=== PATIENT | male | born 1940 | race Caucasian/White ===

== ENCOUNTER → 2016-05-31 | Outpatient (CLI) | payer MEDICARE ==
[2016-01-18 09:57] VITALS: BP 118/67
[~2016-05-31] MED LIST: ALLO300T PO; ASPI325T4 PO; ATOR20TA58 PO; BYSTOLIC5 MG PO; CHOL500015 PO; DULO30CA2 PO; FENO160T PO; GABA-585 PO; IRBE300T3 PO; METF10002 PO; OMEG1CAP16 PO; PIOG30TA3 PO; UBID10CA5 PO
--- NOTE | 2016-05-31 15:04 | KCIC ---
PROCEDURE [facility]. HISTORY COPD. Acute bronchitis. Cough. Shortness of air. Chills. Fever. Body aches. Symptoms have been present for 3 days. COMPARISON None available. FINDINGS No acute lung infiltrate or pleural effusion or pulmonary edema or lung mass or pneumothorax is seen. A sternotomy is evident. The heart size is mildly enlarged. The pulmonary vasculature, mediastinum and both jenny are unremarkable. The osseous structures appear intact. IMPRESSION No acute lung infiltrate. Mild cardiomegaly. Electronically signed by: Alex Bassett MD (May 31, 2016 15:02:33)
== END | disposition home or self-care (01) ==
LOC: KCIC 11:53
PROVIDERS: ATTEND Family Medicine
DX: I51.7 Cardiomegaly (principal); J44.9 Chronic obstructive pulmonary disease, unspecified; R06.02 Shortness of breath; R50.9 Fever, unspecified
CPT/HCPCS: 71020

== ENCOUNTER → 2016-06-01 | Outpatient (CLI) | payer MEDICARE ==
[2016-01-18 09:57] VITALS: BP 118/67
== END | disposition home or self-care (01) ==
LOC: PCVCCLINIC 15:29
PROVIDERS: ATTEND Internal Medicine Cardiovascular Disease
DX: I25.10 Atherosclerotic heart disease of native coronary artery without angina pectoris (principal); R06.00 Dyspnea, unspecified; E78.1 Pure hyperglyceridemia; I10 Essential (primary) hypertension; E78.00 Pure hypercholesterolemia, unspecified; G47.33 Obstructive sleep apnea (adult) (pediatric); I77.9 Disorder of arteries and arterioles, unspecified; J44.9 Chronic obstructive pulmonary disease, unspecified
CPT/HCPCS: 93005; G0463

== ENCOUNTER → 2016-07-19 | Outpatient (CLI) | payer MEDICARE ==
[2016-01-18 09:57] VITALS: BP 118/67
--- NOTE | 2016-07-19 16:21 | KCIC ---
PROCEDURE Three views right hand dated 07/19/2016. HISTORY Chronic right hand pain worsening lately. No known injury. TECHNIQUE Three views obtained. COMPARISON None. FINDINGS Bony alignment is anatomic. No displaced fracture no acute osseous or articular abnormality. Moderate degenerative change of 1st carpal metacarpal joint with mild degenerative change of the scaphoid trapezial joint and interphalangeal joints throughout. There is also mild arthrosis of the MCP joints throughout. No erosive changes or periostitis. IMPRESSION No acute radiographic abnormality. Mild to moderate degenerative changes as described above. Electronically signed by: Alvarado Pike (Jul 19, 2016 16:19:39)
== END | disposition home or self-care (01) ==
LOC: KCIC 15:25
PROVIDERS: ATTEND Family Medicine
DX: M79.641 Pain in right hand (principal); M19.041 Primary osteoarthritis, right hand; G89.29 Other chronic pain
CPT/HCPCS: 73130

== ENCOUNTER → 2016-09-20 | Outpatient (CLI) | payer MEDICARE ==
[2016-01-18 09:57] VITALS: BP 118/67
[~2016-09-20] MED LIST changes: -ASPI325T4 PO; +ASPI325T8 PO; -CHOL500015 PO; +CHOL500045 PO; +METF-620 PO; -METF10002 PO; -OMEG1CAP16 PO; +OMEG1CAP27 PO
== END | disposition home or self-care (01) ==
LOC: PMGWOUND 10:32
PROVIDERS: ATTEND Emergency Medicine Undersea and Hyperbaric Medicine
DX: E11.622 Type 2 diabetes mellitus with other skin ulcer (principal); L97.811 Non-pressure chronic ulcer of other part of right lower leg limited to breakdown of skin; I10 Essential (primary) hypertension; E78.00 Pure hypercholesterolemia, unspecified; I25.10 Atherosclerotic heart disease of native coronary artery without angina pectoris; E11.40 Type 2 diabetes mellitus with diabetic neuropathy, unspecified; J44.9 Chronic obstructive pulmonary disease, unspecified; E78.5 Hyperlipidemia, unspecified; Z87.891 Personal history of nicotine dependence; Z95.1 Presence of aortocoronary bypass graft
CPT/HCPCS: 29581; 97597

== ENCOUNTER → 2016-09-23 | Outpatient (CLI) | payer MEDICARE ==
[2016-01-18 09:57] VITALS: BP 118/67
== END | disposition home or self-care (01) ==
LOC: PMGWOUND 10:34
PROVIDERS: ATTEND Preventive Medicine Undersea and Hyperbaric Medicine
DX: E11.622 Type 2 diabetes mellitus with other skin ulcer (principal); L97.811 Non-pressure chronic ulcer of other part of right lower leg limited to breakdown of skin; J44.9 Chronic obstructive pulmonary disease, unspecified; I10 Essential (primary) hypertension; E78.5 Hyperlipidemia, unspecified; E78.00 Pure hypercholesterolemia, unspecified; E11.40 Type 2 diabetes mellitus with diabetic neuropathy, unspecified; I25.2 Old myocardial infarction; I25.10 Atherosclerotic heart disease of native coronary artery without angina pectoris; Z95.1 Presence of aortocoronary bypass graft; Z87.891 Personal history of nicotine dependence
CPT/HCPCS: 29581

== ENCOUNTER → 2016-09-30 | Outpatient (CLI) | payer MEDICARE ==
[2016-01-18 09:57] VITALS: BP 118/67
== END | disposition home or self-care (01) ==
LOC: PMGWOUND 10:21
PROVIDERS: ATTEND Preventive Medicine Undersea and Hyperbaric Medicine
DX: E11.622 Type 2 diabetes mellitus with other skin ulcer (principal); I87.311 Chronic venous hypertension (idiopathic) with ulcer of right lower extremity; L97.211 Non-pressure chronic ulcer of right calf limited to breakdown of skin; J44.9 Chronic obstructive pulmonary disease, unspecified; I10 Essential (primary) hypertension; E78.5 Hyperlipidemia, unspecified; I25.2 Old myocardial infarction; E78.00 Pure hypercholesterolemia, unspecified; E11.40 Type 2 diabetes mellitus with diabetic neuropathy, unspecified; Z87.891 Personal history of nicotine dependence; Z95.1 Presence of aortocoronary bypass graft
CPT/HCPCS: 99213

== ENCOUNTER → 2016-10-18 | Outpatient (CLI) | payer MEDICARE ==
[2016-01-18 09:57] VITALS: BP 118/67
--- NOTE | 2016-10-18 14:48 | PCVCIMAG ---
APPROVED REPORT Patient Location: Out-Patient Indications Stenosis Doppler Spectral Velocity Analysis PSV / EDVPSV / EDV ECA (R) 137 / 12 cm/sECA (L) 110 / 7 cm/s dICA (R) 71 / 18 cm/sdICA (L) 79 / 18 cm/s Bertram (R) 71 / 18 cm/smICA (L) 83 / 16 cm/s pICA (R) 63 / 13 cm/spICA (L) 95 / 22 cm/s Bulb (R) 74 / 13 cm/sBulb (L) 95 / 12 cm/s dCCA (R) 86 / 14 cm/sdCCA (L) 116 / 14 cm/s mCCA (R) 102 / 13 cm/smCCA (L) 101 / 15 cm/s Vert (R) 50 / 12 cm/sVert (L) 63 / 16 cm/s ICA/CCA 0.83 ICA/CCA 0.82 Findings The right carotid bulb has moderate plaque. The right proximal internal carotid artery shows <40% stenosis. The right common carotid artery shows no significant stenosis. The right external carotid artery shows no significant stenosis. The left carotid bulb has mild plaque. The left proximal internal carotid artery shows <40% stenosis. The left common carotid artery shows no significant stenosis. The left external carotid artery shows no significant stenosis. Conclusion 1. Mild-moderate internal carotid plaquing (<40%) 2. Antegrade vertebral flow
--- NOTE | 2016-10-18 17:36 | PCVCIMAG ---
APPROVED REPORT Exam: Stress Echocardiogram Indication: CAD s/p PCI, Hx CABG, COPD, Obesity, DM Stress Nurse: Sarah Chauhan RN Status: routine HR: 85 bpm Rhythm: NSR Medical History Medical History: CAD s/p stent, Diabetes, Obesity Procedure The patient underwent an Exercise Stress Test using the Erik Protocol. Blood pressure, heart rate, and EKG were monitored. An Echocardiogram was performed by supply chain technician in four stages in quad fashion. At peak stress, four selected images were obtained and placed side by side with resting images for comparison. Stress Test Details Stress Test: Exercise stress testing was performed using a Erik protocol. HR Resting HR: 85 bpmMax Heart Rate (APMHR): 145 bpm Max HR Achieved: 139 bpmTarget HR (85% APMHR): 123 bpm % of APMHR: 95 Recovery HR: 86 bpm HR response to stress: Normal HR response to stress BP Resting BP: 120/72 mmHg Max BP: 138/62 mmHg Recovery BP: 138/62 mmHg ECG Resting ECG: Sinus Rhythm w/ T wave inversion Stress ECG: Sinus Rhythm w/ T wave inversion Arrhythmia: None Recovery ECG: Sinus Rhythm Recovery Arrhythmia: None Clinical Reason for Termination: Dyspnea Stress Symptoms: Dyspnea Exercise duration: 3 min 42 sec Highest Stage Achieved: Stage 2: 2.5 mph at 12% grade. Exercise capacity: 6.2 METs Overall Exercise Capacity for Age: Poor Pre-Stress Echo The resting Echocardiogram showed normal left ventricular contractility with an estimated Ejection Fraction of about 50-55%. Normal wall motion in all segments on baseline images. Post-Stress Echo The stress Echocardiogram showed normal left ventricular contractility with an estimated Ejection Fraction of about 60-65%. Normal augmentation of wall motion in all segments on post stress images. Clinical No clinical or ECG evidence for ischemia. Conclusion Clinical Response: Non-ischemic Exercise Capacity: Below Average Stress ECG Response: Non-ischemic Stress Echo Images: Non-ischemic Other Information Study Quality: Fair
== END | disposition home or self-care (01) ==
LOC: PCVCIMAG 13:22
PROVIDERS: ATTEND Internal Medicine Cardiovascular Disease
DX: I65.23 Occlusion and stenosis of bilateral carotid arteries (principal); I10 Essential (primary) hypertension; I25.10 Atherosclerotic heart disease of native coronary artery without angina pectoris; J44.9 Chronic obstructive pulmonary disease, unspecified; E11.9 Type 2 diabetes mellitus without complications; E66.9 Obesity, unspecified; Z95.1 Presence of aortocoronary bypass graft
CPT/HCPCS: 93325; 93351; 93880

== ENCOUNTER → 2017-01-09 | Outpatient (CLI) | payer MEDICARE ==
[2016-01-18 09:57] VITALS: BP 118/67
== END | disposition home or self-care (01) ==
LOC: PMGWOUND 09:22
PROVIDERS: ATTEND Emergency Medicine Undersea and Hyperbaric Medicine
DX: I87.313 Chronic venous hypertension (idiopathic) with ulcer of bilateral lower extremity (principal); E11.622 Type 2 diabetes mellitus with other skin ulcer; L97.211 Non-pressure chronic ulcer of right calf limited to breakdown of skin; L97.221 Non-pressure chronic ulcer of left calf limited to breakdown of skin; E78.00 Pure hypercholesterolemia, unspecified; I25.10 Atherosclerotic heart disease of native coronary artery without angina pectoris; E11.40 Type 2 diabetes mellitus with diabetic neuropathy, unspecified; Z87.01 Personal history of pneumonia (recurrent); Z89.421 Acquired absence of other right toe(s); Z87.891 Personal history of nicotine dependence; Z95.1 Presence of aortocoronary bypass graft
CPT/HCPCS: 29581

== ENCOUNTER → 2017-01-12 | Outpatient (CLI) | payer MEDICARE ==
[2016-01-18 09:57] VITALS: BP 118/67
== END | disposition home or self-care (01) ==
LOC: PMGWOUND 11:32
PROVIDERS: ATTEND Emergency Medicine Undersea and Hyperbaric Medicine
DX: I87.313 Chronic venous hypertension (idiopathic) with ulcer of bilateral lower extremity (principal); E11.622 Type 2 diabetes mellitus with other skin ulcer; L97.211 Non-pressure chronic ulcer of right calf limited to breakdown of skin; L97.221 Non-pressure chronic ulcer of left calf limited to breakdown of skin; E78.00 Pure hypercholesterolemia, unspecified; I25.10 Atherosclerotic heart disease of native coronary artery without angina pectoris; E11.40 Type 2 diabetes mellitus with diabetic neuropathy, unspecified; Z95.1 Presence of aortocoronary bypass graft; Z87.891 Personal history of nicotine dependence
CPT/HCPCS: 29581

== ENCOUNTER → 2017-01-19 | Outpatient (CLI) | payer MEDICARE ==
[2016-01-18 09:57] VITALS: BP 118/67
== END | disposition home or self-care (01) ==
LOC: PMGWOUND 12:29
PROVIDERS: ATTEND Emergency Medicine Undersea and Hyperbaric Medicine
DX: I87.313 Chronic venous hypertension (idiopathic) with ulcer of bilateral lower extremity (principal); E11.622 Type 2 diabetes mellitus with other skin ulcer; L97.211 Non-pressure chronic ulcer of right calf limited to breakdown of skin; L97.221 Non-pressure chronic ulcer of left calf limited to breakdown of skin; E78.00 Pure hypercholesterolemia, unspecified; I25.10 Atherosclerotic heart disease of native coronary artery without angina pectoris; E11.40 Type 2 diabetes mellitus with diabetic neuropathy, unspecified; Z95.1 Presence of aortocoronary bypass graft; Z87.891 Personal history of nicotine dependence
CPT/HCPCS: 99212

== ENCOUNTER → 2017-04-24 | Outpatient (CLI) | payer MEDICARE | END | disposition home or self-care (01) | LOC: PCVCCLINIC 14:41 | DX: I25.810 Atherosclerosis of coronary artery bypass graft(s) without angina pectoris (principal); I48.0 Paroxysmal atrial fibrillation; I77.9 Disorder of arteries and arterioles, unspecified; I10 Essential (primary) hypertension; E78.00 Pure hypercholesterolemia, unspecified; G47.33 Obstructive sleep apnea (adult) (pediatric); E11.9 Type 2 diabetes mellitus without complications; J44.9 Chronic obstructive pulmonary disease, unspecified; E66.9 Obesity, unspecified; R94.31 Abnormal electrocardiogram [ECG] [EKG]; Z95.1 Presence of aortocoronary bypass graft; Z87.891 Personal history of nicotine dependence; Z79.82 Long term (current) use of aspirin; Z79.899 Other long term (current) drug therapy; Z79.84 Long term (current) use of oral hypoglycemic drugs | CPT/HCPCS: 80061; 93005; G0463 ==

== ENCOUNTER → 2017-06-01 | Outpatient (CLI) | payer MEDICARE | END | disposition home or self-care (01) | LOC: PMGWOUND 13:12 | DX: I87.311 Chronic venous hypertension (idiopathic) with ulcer of right lower extremity (principal); E11.622 Type 2 diabetes mellitus with other skin ulcer; L97.211 Non-pressure chronic ulcer of right calf limited to breakdown of skin; E78.00 Pure hypercholesterolemia, unspecified; I25.10 Atherosclerotic heart disease of native coronary artery without angina pectoris; E11.40 Type 2 diabetes mellitus with diabetic neuropathy, unspecified; J44.9 Chronic obstructive pulmonary disease, unspecified; I48.0 Paroxysmal atrial fibrillation; E66.9 Obesity, unspecified; G47.33 Obstructive sleep apnea (adult) (pediatric); Z87.891 Personal history of nicotine dependence; Z96.659 Presence of unspecified artificial knee joint; Z68.41 Body mass index [BMI] 40.0-44.9, adult; Z95.1 Presence of aortocoronary bypass graft | CPT/HCPCS: 29581 ==

== ENCOUNTER → 2017-06-05 | Outpatient (CLI) | payer MEDICARE | END | disposition home or self-care (01) | LOC: PMGWOUND 13:40 | DX: I87.311 Chronic venous hypertension (idiopathic) with ulcer of right lower extremity (principal); E11.622 Type 2 diabetes mellitus with other skin ulcer; L97.211 Non-pressure chronic ulcer of right calf limited to breakdown of skin; E78.00 Pure hypercholesterolemia, unspecified; I25.10 Atherosclerotic heart disease of native coronary artery without angina pectoris; E11.40 Type 2 diabetes mellitus with diabetic neuropathy, unspecified; J44.9 Chronic obstructive pulmonary disease, unspecified; I48.0 Paroxysmal atrial fibrillation; E66.9 Obesity, unspecified; G47.33 Obstructive sleep apnea (adult) (pediatric); Z87.891 Personal history of nicotine dependence; Z96.659 Presence of unspecified artificial knee joint; Z68.41 Body mass index [BMI] 40.0-44.9, adult; Z95.1 Presence of aortocoronary bypass graft; Z79.82 Long term (current) use of aspirin | CPT/HCPCS: 29581 ==

== ENCOUNTER → 2017-06-13 | Outpatient (CLI) | payer MEDICARE | END | disposition home or self-care (01) | LOC: PMGWOUND 13:39 | DX: I87.311 Chronic venous hypertension (idiopathic) with ulcer of right lower extremity (principal); E11.622 Type 2 diabetes mellitus with other skin ulcer; L97.211 Non-pressure chronic ulcer of right calf limited to breakdown of skin; E78.00 Pure hypercholesterolemia, unspecified; I25.10 Atherosclerotic heart disease of native coronary artery without angina pectoris; E11.40 Type 2 diabetes mellitus with diabetic neuropathy, unspecified; Z95.1 Presence of aortocoronary bypass graft; Z87.891 Personal history of nicotine dependence | CPT/HCPCS: 29581 ==

== ENCOUNTER → 2017-06-16 | Outpatient (CLI) | payer MEDICARE | END | disposition home or self-care (01) | LOC: PMGWOUND 11:40 | DX: I87.311 Chronic venous hypertension (idiopathic) with ulcer of right lower extremity (principal); E11.622 Type 2 diabetes mellitus with other skin ulcer; L97.211 Non-pressure chronic ulcer of right calf limited to breakdown of skin; I25.10 Atherosclerotic heart disease of native coronary artery without angina pectoris; E78.00 Pure hypercholesterolemia, unspecified; E11.40 Type 2 diabetes mellitus with diabetic neuropathy, unspecified; J44.9 Chronic obstructive pulmonary disease, unspecified; E66.9 Obesity, unspecified; G47.33 Obstructive sleep apnea (adult) (pediatric); I48.0 Paroxysmal atrial fibrillation; I10 Essential (primary) hypertension; Z95.1 Presence of aortocoronary bypass graft; Z87.891 Personal history of nicotine dependence; Z68.41 Body mass index [BMI] 40.0-44.9, adult | CPT/HCPCS: 99211 ==

== ENCOUNTER → 2017-10-24 | Outpatient (CLI) | payer MEDICARE | END | disposition home or self-care (01) | LOC: PCVCIMAG 15:26 | DX: I25.10 Atherosclerotic heart disease of native coronary artery without angina pectoris (principal); I10 Essential (primary) hypertension; E11.9 Type 2 diabetes mellitus without complications; J44.9 Chronic obstructive pulmonary disease, unspecified; E66.9 Obesity, unspecified; I48.0 Paroxysmal atrial fibrillation; Z95.1 Presence of aortocoronary bypass graft | CPT/HCPCS: 93325; 93351 ==

== ENCOUNTER → 2017-12-25 | Outpatient (CLI) | payer MEDICARE ==
[2016-01-18 09:57] VITALS: BP 118/67
[~2017-12-25] MED LIST changes: -METF-620 PO; +METF10007 PO; -PIOG30TA3 PO; +PIOG30TA62 PO
== END | disposition home or self-care (01) ==
LOC: PMGWOUND 13:08
PROVIDERS: ATTEND Emergency Medicine Undersea and Hyperbaric Medicine
DX: E11.622 Type 2 diabetes mellitus with other skin ulcer (principal); I87.313 Chronic venous hypertension (idiopathic) with ulcer of bilateral lower extremity; L97.211 Non-pressure chronic ulcer of right calf limited to breakdown of skin; L97.221 Non-pressure chronic ulcer of left calf limited to breakdown of skin; E11.40 Type 2 diabetes mellitus with diabetic neuropathy, unspecified; I25.10 Atherosclerotic heart disease of native coronary artery without angina pectoris; I48.0 Paroxysmal atrial fibrillation; E78.00 Pure hypercholesterolemia, unspecified; E66.9 Obesity, unspecified; Z68.38 Body mass index [BMI] 38.0-38.9, adult; Z87.891 Personal history of nicotine dependence
CPT/HCPCS: 99214; G0463

== ENCOUNTER → 2018-05-08 | Outpatient (CLI) | payer MEDICARE ==
[2016-01-18 09:57] VITALS: BP 118/67
== END | disposition home or self-care (01) ==
LOC: PCVCCLINIC 14:19
PROVIDERS: ATTEND Internal Medicine Cardiovascular Disease
DX: I25.810 Atherosclerosis of coronary artery bypass graft(s) without angina pectoris (principal); I77.9 Disorder of arteries and arterioles, unspecified; I10 Essential (primary) hypertension; E78.00 Pure hypercholesterolemia, unspecified; G47.33 Obstructive sleep apnea (adult) (pediatric); J44.9 Chronic obstructive pulmonary disease, unspecified; Z95.1 Presence of aortocoronary bypass graft; Z87.891 Personal history of nicotine dependence; Z79.82 Long term (current) use of aspirin
CPT/HCPCS: 36415; 80061; 93005; G0463

== ENCOUNTER → 2018-11-19 | Outpatient (CLI) | payer MEDICARE ==
[2016-01-18 09:57] VITALS: BP 118/67
--- NOTE | 2018-11-19 15:47 | PCVCIMAG ---
APPROVED REPORT Study performed: 11/19/2018 13:43:24 Exam: Stress Echocardiogram Indication: Hyperlipidemia, Hypertension, CAD s/p CABG Patient Location: Echo lab Stress Nurse: Amaya Titus RN Status: routine Ht: 5 ft 9 in HR: 94 bpm BP: 160/72 mmHg Rhythm: NSR Medical History Medical History: CAD s/p CABG, COPD Procedure The patient underwent an Exercise Stress Test using the Erik Protocol. Blood pressure, heart rate, and EKG were monitored. An Echocardiogram was performed by a&p technician in four stages in quad fashion. At peak stress, four selected images were obtained and placed side by side with resting images for comparison. Stress Test Details Stress Test: Exercise stress testing was performed using a Erik protocol. HR Resting HR: 94 bpmMax Heart Rate (APMHR): 143 bpm Max HR Achieved: 115 bpmTarget HR (85% APMHR): 121 bpm % of APMHR: 80 Recovery HR: 109 bpm HR response to stress: Normal HR response to stress BP Resting BP: 104/60 mmHg Max BP: 160/72 mmHg Recovery BP: 152/76 mmHg BP response to stress: Normal blood pressure response to stress. ECG Resting ECG: Sinus Rhythm Stress ECG: Sinus Rhythm Recovery ECG: Sinus Rhythm Clinical Reason for Termination: Maximal effort Exercise duration: 2 min 58 sec Highest Stage Achieved: Stage 1: 1.7 mph at 10% grade. Exercise capacity: 4.60 METs Pre-Stress Echo The resting Echocardiogram showed normal left ventricular contractility with an estimated Ejection Fraction of about >55%. Normal wall motion in all segments on baseline images. Post-Stress Echo The stress Echocardiogram showed normal left ventricular contractility with an estimated Ejection Fraction of about 55-60%. Normal augmentation of wall motion in all segments on post stress images. Clinical No clinical or ECG evidence for ischemia. Conclusion Clinical Response: Non-ischemic Exercise Capacity: Below Average Stress ECG Response: Non-ischemic Stress Echo Images: Non-ischemic The left ventricle is normal in size and wall thickness in both the rest and stress images. <Conclusion> The left ventricle is normal in size and wall thickness in both the rest and stress images.
== END | disposition home or self-care (01) ==
LOC: PCVCIMAG 13:18
PROVIDERS: ATTEND Internal Medicine Cardiovascular Disease
DX: I25.10 Atherosclerotic heart disease of native coronary artery without angina pectoris (principal); I10 Essential (primary) hypertension; E78.5 Hyperlipidemia, unspecified; J44.9 Chronic obstructive pulmonary disease, unspecified; E78.00 Pure hypercholesterolemia, unspecified; E66.9 Obesity, unspecified; Z88.6 Allergy status to analgesic agent; Z88.3 Allergy status to other anti-infective agents
CPT/HCPCS: 93351

== ENCOUNTER → 2019-01-28 | Outpatient (CLI) | payer MEDICARE ==
[2016-01-18 09:57] VITALS: BP 118/67
--- NOTE | 2019-01-28 16:13 | KCIC ---
CT of the chest with contrast, low dose lung cancer screening protocol 01/28/2019 INDICATION: 78-year-old female with significant smoking history. TECHNIQUE: Multidetector CT of the chest was performed without the administration of contrast according to a low dose lung cancer screening protocol Discussion: No pneumothorax, pleural effusion, or acute appearing focal consolidative infiltrate is seen. 1 to 2 mm noncalcified nodule seen in the right upper lung (axial image 79). 5 mm noncalcified nodule noted in the right middle lobe (axial image 175). Calcified subpleural granuloma seen in the medial right lower lobe. Heart size is normal. No pericardial effusion is seen. Dense coronary calcification probable stents noted. Prior median sternotomy noted. No pathologically enlarged mediastinal adenopathy is appreciated. Scattered small mediastinal nodes noted. The patient of the upper abdomen demonstrates no acute abnormality. No acute osseous changes are seen. IMPRESSION: 1. 5 mm noncalcified nodule right middle lobe 2. 1 to 2 mm noncalcified nodule right upper lobe 3. Lung RADS category 2. Low-dose CT chest recommended in one year. CT DOSING PQRS STATEMENT: One or more of the following individualized dose reduction techniques were utilized for this examination: 1. Automated exposure control 2. Adjustment of the mA and/or kV according to patient size 3. Use of iterative reconstruction technique Electronically signed by: Nino Ahn MD (01/28/2019 4:10 PM) [id number]
== END | disposition home or self-care (01) ==
LOC: CT 14:12
PROVIDERS: ATTEND Family Medicine
DX: Z12.2 Encounter for screening for malignant neoplasm of respiratory organs (principal); R91.8 Other nonspecific abnormal finding of lung field; J84.10 Pulmonary fibrosis, unspecified; J44.9 Chronic obstructive pulmonary disease, unspecified; I25.10 Atherosclerotic heart disease of native coronary artery without angina pectoris; Z87.891 Personal history of nicotine dependence; Z95.818 Presence of other cardiac implants and grafts
CPT/HCPCS: G0297

== ENCOUNTER → 2019-09-30 | Outpatient (CLI) | payer MEDICARE ==
[2016-01-18 09:57] VITALS: BP 118/67
[~2019-09-30] MED LIST changes: +IRBE300T23 PO; -IRBE300T3 PO
--- NOTE | 2019-09-30 16:06 | KCIC ---
EXAM: Lumbar spine, 5 views. HISTORY: Pain. COMPARISON: None. FINDINGS: 5 views of the lumbar spine are obtained. There is mild lumbar dextrocurvature. There is straightening of lumbar lordosis. There is no significant listhesis. There is degenerative endplate remodeling, facet arthropathy with disc space narrowing and osteophytosis primarily at the lumbosacral junction. IMPRESSION: 1. Multilevel degenerative change, primarily the lumbosacral junction. 2. No acute osseous finding. Electronically signed by: Sybil Key MD (09/30/2019 4:03 PM) [id number]
== END | disposition home or self-care (01) ==
LOC: KCIC 12:40
PROVIDERS: ATTEND Physical Medicine & Rehabilitation
DX: M47.897 Other spondylosis, lumbosacral region (principal); M43.8X6 Other specified deforming dorsopathies, lumbar region; M40.46 Postural lordosis, lumbar region; M25.78 Osteophyte, vertebrae
CPT/HCPCS: 72110

== ENCOUNTER → 2019-11-18 | Outpatient (CLI) | payer MEDICARE ==
[2016-01-18 09:57] VITALS: BP 118/67
[~2019-11-18] MED LIST changes: +ALBU0.63 NEB; +ASPI-630 PO; +CETI10TA24 PO; +CLOP75TA PO; +CRESTOR40 MG PO; +DOCU50CA9 PO; +FLUT1DIS IH; +GABA300C18 PO; +POTA10TA12 PO; +TORS20TA2 PO; +VIT1TABL96 PO
--- NOTE | 2019-11-18 12:25 | PDOC2 ---
INITIAL PAIN CONSULT DATE OF SERVICE: DOS: DATE: 11/18/19 TIME: 12:15 CHIEF COMPLAINT: Chief Complaint: Low back and bilateral lower extremity pain HISTORY OF PRESENT ILLNESS: This is a 79-year-old male presents history of pain in the low back and into the bilateral posterior hips lateral thighs anterior thighs mostly across the low back for about 1 year without any specific injury or accident he is aware of. Patient ports pain is constant throbbing aching in the low back cramping at times. Patient reports he cannot stand for longer than 5 to 10 minutes the pain becomes too significant at this also treat with walking for about 10 minutes he has to stop and rest and sit the pain does decrease fairly quickly but then repeats after he gets up and starts walking or standing again. Patient reports is better with laying down or sitting does not awaken from sleep at night does not affect his bowel bladder control but has some increased frequency but no loss of continence. Patient reports he does affect his body to walk again is not use any assistive devices to ambulate. Patient is tried physical therapy in the past as recently as April of this year which is designed to help him with his balance and did by his report but still has significant pain in the back even with stretching strength exercises which he still doing at home. Patient rates his disability rating 0-10 10 being the worst is a 7 with family home r esponsibilities 10 with recreation 9 with social activity occupation sexual behavior 0 with self-care life support activities. Patient reports no overt loss of motor function lower extremities but significant fatigability with walking more than 10 minutes or standing more than 10 to 15 minutes. PAST MEDICAL HISTORY: PMH: Difficult for type 2 diabetes, shortness of breath, COPD, hypertension, coronary artery disease, arthritis, former cigarette smoking. PREVIOUS SURGERIES: Past Surgical Hx: Cataract extraction 2018, coronary artery bypass grafting 2000, coronary stents placement 2017, bariatric surgery 2015, knee replacement on the left and right, tonsillectomy at age 5 5. CURRENT MEDICATIONS: Current Meds: Active Scripts Medications Dose Route/Sig Max Daily Dose Days Date Category Torsemide 20 Mg Tablet 1 Tab PO BID 11/18/19 Reported Advair 100-50 Diskus (Fluticasone/Salmeterol) 1 Each Disk.w.dev 1 Puff IH BID 11/18/19 Reported Albuterol Sulfate Neb Soln (Albuterol Sulfate) 0.63 Mg/3 Ml Vial.neb 1 Vial NEB QID PRN 11/18/19 Reported Vision Formula Tablet (Vit A/C/E/Zinc/Selenium/Copper) 1 Each Tablet 1 Each PO DAILY 11/18/19 Reported Stool Softener (Docusate Sodium) 50 Mg Capsule 250 Mg PO DAILY 11/18/19 Reported Aspirin 81 Mg Tab.chew 1 Tab PO DAILY 11/18/19 Reported Zyrtec (Cetirizine Hcl) 10 Mg Tablet 1 Tab PO DAILY 11/18/19 Reported Klor-Con 10 (Potassium Chloride) 10 Meq Tablet.er 10 Meq PO BID 11/18/19 Reported Crestor (Rosuvastatin Calcium) 40 Mg Tablet 20 Mg PO HS 11/18/19 Reported Clopidogrel (Clopidogrel Bisulfate) 75 Mg Tablet 1 Tab PO DAILY 11/18/19 Reported Gabapentin 300 Mg Capsule 300 Mg PO TID 11/18/19 Reported Pioglitazone Hcl 30 Mg Tablet 30 Mg PO DAILY 01/18/16 Reported Metformin Hcl 1,000 Mg Tablet 1 Tab PO BID 01/18/16 Reported Irbesartan 300 Mg Tablet 300 Mg PO DAILY 01/18/16 Reported Co Q-10 (Ubidecarenone) 10 Mg Capsule 10 Mg PO 01/18/16 Reported Allopurinol 300 Mg Tablet 1 Tab PO DAILY 01/18/16 Reported Bystolic (Nebivolol) 5 Mg Tablet 5 Mg PO DAILY 01/18/16 Reported Fenofibrate 160 Mg Tablet 1 Tab PO DAILY 01/18/16 Reported Vitamin D (Cholecalciferol (Vitamin D3)) 5,000 Unit Tablet 5,000 Unit PO TWICE WEEKLY 01/18/16 Reported Fish Oil 1,000 Mg Softgel (Haven-3 Fatty Acids/Fish Oil) 1 Each Capsule 1 Each PO DAILY 01/18/16 Reported ALLERGIES; Allergies: Coded Allergies: epinephrine (Verified Allergy, Severe, Anaphylaxis, 01/13/16) codeine (Verified Allergy, Intermediate, Anxiety, 01/13/16) pt gets "wired" niacin (Verified Allergy, Intermediate, Rash, 01/13/16) FAMILY HISTORY: Family Hx: Heart disease diabetes hypercholesterolemia and hypertension SOCIAL HISTORY: Social Hx: Patient does not drink alcohol does not smoke quit 21 years ago does not use any illegal illicit or recreational drugs is lives with his spouse lives locally in [place] reports he is currently retired. REVIEW OF SYSTEMS: ROS: Review of systems is positive those on his mid to his present illness all systems are reviewed otherwise negative complete full well-documented on patient's chart. PHYSICAL EXAM: VS: Blood pressure 141/74 pulse 88 respirations 22 temperature is 98.5 F height is 5 feet 9 inches weight is 273 pounds PE: PHYSICAL EXAMINATION: GENERAL: The patient is awake, alert, oriented, appropriate, very pleasant demeanor HEENT: Shows normocephalic, atraumatic. Extraocular movements are intact and symmetrical. Oral cavity: Mucous membranes moist and pink. Dentition is intact. NECK: Shows anterior throat supple without palpable lymphadenopathy noted. Swallow reflex symmetrical. CHEST: Shows normal on inspection. Breath sounds are clear bilaterally distant but clear. HEART: Shows S1, S2 clear. No murmurs auscultated. ABDOMEN: Soft, obese, nontender, nondistended. No palpable organomegaly is noted. No rebound or guarding demonstrated. BACK: Shows spine grossly in the midline. Normal-appearing cervical lordotic curvature. There is slightly increased thoracic kyphosis, some minor flattening of the lumbar lordotic curvature. Lumbar paraspinous muscles show symmetrical on inspection, on palpation shows some moderate tenderness diffusely throughout the upper, middle and lower distribution of the paraspinous muscles bilaterally and also into the lower thoracic paraspinous musculature, firm and tender, but without specific trigger points, without radiation of pain. The patient has good rotational motion of the lumbar spine, both laterally as well as extension and flexion without significant difficulty. No tenderness over the spinous processes, sacrum or sacroiliac regions. EXTREMITIES: Lower extremities show deep tendon reflexes 1+ in the patellar and tendo calcaneus tendons. Motor exam is 4 on a scale of 5 with right dors iflexion, extension, quadriceps and hamstring flexion and 4/5 on the left. Peripheral pulses are 1+ posterior tibial. No peripheral edema is noted bilaterally. Lower extremities are warm and dry to touch, equal in color and appearance. Straight leg raise noted to be negative on the right , left side is negative also. Gaenslen's and Kole's maneuvers are negative as well. The patient is able to stand walk needs some assistance getting up from a seated position using both arms of the chair to support himself has a slight shuffling gait does not appear to favor the right or left lower extremity significantly not use any assistive devices to ambulate such as canes or walkers.. SKIN: Shows warm and dry, good turgor. No edema. No sores, rashes or bruising throughout. IMPRESSION: Impression: This is a 79-year-old male with 1 year history low back bilateral lower extremity pain mostly pain in the back itself. #2 MRI scan lumbar spine showing multilevel disc degeneration and spondylosis with annular bulge and midline disc protrusion present L3-4 also L4-5 with annular disc bulge and small midline disc protrusion creating flattening of the anterior thecal sac flattening of the posterior thecal sac produced by facet arthropathy and hypertrophy of the ligamentum flavum. #3 obesity #4 arthritis #5 hypertension #6 shortness of breath with COPD #7 type 2 diabetes Plan: Options discussed with the patient including conservative management physical therapies interventional techniques and he like to pursue interventional techniques. We discussed a lumbar epidural steroid injection using description as well as anatomical models to describe the procedure. We will first wait for clearance from his hydrometallurgical engineer regarding holding his Plavix for 7 days. If this is deemed safe and appropriate will have the patient return for lumbar epidural steroid injection after Plavix has been held pending cardiology approval. NOEL DYER MD Nov 18, 2019 12:25
== END | disposition home or self-care (01) ==
LOC: PNCL 11:12
PROVIDERS: ATTEND Anesthesiology
DX: M47.896 Other spondylosis, lumbar region (principal); M51.36 Other intervertebral disc degeneration, lumbar region; E11.9 Type 2 diabetes mellitus without complications; J44.9 Chronic obstructive pulmonary disease, unspecified; I11.0 Hypertensive heart disease with heart failure; I50.9 Heart failure, unspecified; E78.00 Pure hypercholesterolemia, unspecified; M19.90 Unspecified osteoarthritis, unspecified site; Z88.5 Allergy status to narcotic agent; Z88.8 Allergy status to other drugs, medicaments and biological substances; Z79.82 Long term (current) use of aspirin; Z79.899 Other long term (current) drug therapy
CPT/HCPCS: G0463

== ENCOUNTER → 2019-12-03 | Outpatient (CLI) | payer MEDICARE ==
[2016-01-18 09:57] VITALS: BP 118/67
[~2019-12-03] MED LIST changes: +IOHEXOL 180 MG/ML 10 ML VIAL. ONE; +methylPREDNISolone ACETATE 40 MG/ML VIAL. ONE; +methylPREDNISolone ACETATE 80 MG/ML VIAL. ONE
--- NOTE | 2019-12-03 11:46 | PDOC ---
Progress Note - Pain Clinic Date of Service: DOS: DATE: 12/03/19 TIME: 11:41 Diagnosis: Dx: Lumbar radiculopathy with lumbar degenerative disc disease and lumbar spondylosis History or Present Illness: HPI: 79-year-old male returns follow-up status post initial evaluation and preauthorization to hold Plavix patient is received this from his juice standardizer now has been off his Plavix now for 7 days. Patient reports still significant pain low back and the bilateral lower extremities posterior gluteus posterior lateral thigh lateral anterior thighs and medial thighs worse with walking standing change positions better with sitting or laying down does not awaken him from sleep at night mostly patient worse the pain is relatively unchanged ~8 on a scale of 10 is worse over the past week 8 on average and a 6 at its least and 7 today. Patient reports no new motor or sensory deficits describes the pain is aching and constant in the low back and legs no new bowel or bladder incontinence as well. Physical Exam: VS: Blood pressure is 141/73 pulse 94 respirations are 18 temperature 98.2 F and height is 5 feet 9 inches weight is 273 pounds PE: PHYSICAL EXAMINATION: GENERAL: The patient is awake, alert, oriented, appropriate, very pleasant demeanor HEENT: Shows normocephalic, atraumatic. Extraocular movements are intact and symmetrical. Oral cavity: Mucous membranes moist and pink. NECK: Shows anterior throat supple without palpable lymphadenopathy noted. Swallow reflex symmetrical. CHEST: Shows normal on inspection. Breath sounds are clear, yet distant bilaterally. HEART: Shows S1, S2 clear. No murmurs auscultated. ABDOMEN: Soft, nontender, nondistended, obese. No palpable organomegaly is noted. No rebound or guarding demonstrated. BACK: Shows spine grossly in the midline. Normal-appearing cervical lordotic curvature. There is slightly increased thoracic kyphosis, some minor flattening of the lumbar lordotic curvature. Lumbar paraspinous muscles show symmetrical on inspection, on palpation shows some moderate tenderness diffusely throughout the upper, middle and lower distribution of the paraspinous muscles bilaterally without specific trigger points, without radiation of pain. The patient has good rotational motion of the lumbar spine, both laterally as well as extension and flexion without significant difficulty. No tenderness over the spinous pr ocesses, sacrum or sacroiliac regions. EXTREMITIES: Lower extremities show deep tendon reflexes 1+ in the patellar and tendo calcaneus tendons. Motor exam is 4 on a scale of 5 with right dorsiflexion, extension, quadriceps and hamstring flexion and 4/5 on the left. Peripheral pulses are 1+ posterior tibial. No peripheral edema is noted bilaterally. Lower extremities are warm and dry to touch, equal in color and appearance. Procedure: Procedure: Options discussed with the patient. Patient's old chart was reviewed his current medication regimen updated current review of systems updated today as we ll. We will proceed with a lumbar epidural steroid injection today with fluoroscopic guidance risk rating discussed including but not limited to bleeding infection possibility of epidural hematoma subsequent neurological compromise dural puncture headache spinal cord and or nerve damage side effects of steroid medication and poor results chronic pain control. Patient understands wished to proceed patient return to clinic in approximate 2 weeks for follow-up was counseled as return appointment activity level and side effects to be aware of. Medication Injected: Med Injected: Procedure is lumbar epidural steroid injection under local anesthetic using sterile prep and drape at the L4-5 level using C-arm fluoroscopic guidance in both AP and lateral views medications injected is 120 mg Depo-Medrol + 10 mL preservative-free normal saline and 2 mL contrast- condition at discharge is stable patient tolerated procedure well had no complications. Condition at Discharge: Condition at Discharge: Condition at discharge stable patient tolerated procedure well had no complications. NOEL DYER MD Dec 03, 2019 11:46
== END | disposition home or self-care (01) ==
LOC: PNCL 11:04
PROVIDERS: ATTEND Anesthesiology
DX: M51.16 Intervertebral disc disorders with radiculopathy, lumbar region (principal); M47.896 Other spondylosis, lumbar region; E11.9 Type 2 diabetes mellitus without complications; E78.00 Pure hypercholesterolemia, unspecified; Z79.82 Long term (current) use of aspirin; Z79.899 Other long term (current) drug therapy; Z88.5 Allergy status to narcotic agent; Z88.8 Allergy status to other drugs, medicaments and biological substances
CPT/HCPCS: 62323; J1030; J1040; Q9965

== ENCOUNTER → 2020-01-07 | Outpatient (CLI) | payer MEDICARE ==
[2016-01-18 09:57] VITALS: BP 118/67
[~2020-01-07] MED LIST changes: -CETI10TA24 PO; +CETI10TA74 PO
--- NOTE | 2020-01-07 11:30 | PDOC ---
Progress Note - Pain Clinic Date of Service: DOS: DATE: 01/07/20 TIME: 11:27 Diagnosis: Dx: Lumbar radiculopathy with lumbar degenerative disease and lumbar spondylosis History or Present Illness: HPI: 79-year-old male returns follow-up status post lumbar epidural steroid action x1 December 03, 2019. Patient reports near 100% improvement for the first month or so the pain is returning now in the low back and the bilateral lower extremities slightly more on the left than the right but present bilaterally in the posterior gluteus lateral thigh anterior thigh medial thighs with significant fatigability in the bilateral lower extremities patient reports initially is doing much better with walking to counseled activities traveling with greater ease and comfort sleeping better at night now beginning to awaken him to see about every 4-5 hours or so. Patient reports it is a 9 on a scale of 10 is worse over the past week 8 on average 6 its least is an 8 today patient reports is sharp and tight in the low back with constant severe pain with walking standing better with sitting or laying down no motor or sensory deficits no bowel or bladder incontinence. Physical Exam: VS: Blood pressure is 138/72 pulse 98 respirations are 20 temperature 98.3 F weight is 280 pounds PE: PHYSICAL EXAMINATION: GENERAL: The patient is awake, alert, oriented, appropriate, very pleasant demeanor HEENT: Shows normocephalic, atraumatic. Extraocular movements are intact and symmetrical. NECK: Shows anterior throat supple without palpable lymphadenopathy noted. Swallow reflex symmetrical. CHEST: Shows normal on inspection. Breath sounds are clear bilaterally, no rales rhonchi or wheezes auscultated. HEART: Shows S1, S2 clear. No murmurs auscultated. ABDOMEN: Soft, nontender, nondistended, obese. No palpable organomegaly is noted. No rebound or guarding demonstrated. BACK: Shows spine grossly in the midline. Normal-appearing cervical lordotic curvature. There is slightly increased thoracic kyphosis, some minor flattening of the lumbar lordotic curvature. Lumbar paraspinous muscles show symmetrical on inspection, on palpation shows some moderate tenderness diffusely throughout the upper, middle and lower distribution of the paraspinous muscles bilaterally without trigger points, without radiation of pain. The patient has good rotational motion of the lumbar spine, both laterally as well as extension and flexion without significant difficulty. No tenderness over the spinous processes, sacrum or sacroiliac regions. EXTREMITIES: Lower extremities show deep tendon reflexes 1+ in the patellar and tendo calcaneus tendons. Motor exam is 4 on a scale of 5 with right dorsiflexion, extension, quadriceps and hamstring flexion and 4/5 on the left. Peripheral pulses are 1+ posterior tibial. No peripheral edema is noted bilaterally. Lower extremities are warm and dry to touch, equal in color and appearance. SKIN: Shows warm and dry, good turgor. No edema. No sores, rashes or bruising throughout. Procedure: Procedure: Options were discussed with the patient. Patient's old chart was reviewed his his current medication regimen updated current review of systems updated today as well. We will proceed with a second in the series lumbar epidural straight injection today with fluoroscopic guidance. Risks were discussed including but not limited to: Bleeding, infection, possibility of epidural hematoma and subsequent neurological compromise, dural puncture, headaches, spinal cord and /or nerve damage, side effects of steroid medication, and poor results regarding pain control. Patient understands wished to proceed. Return to clinic in roughly 2 weeks for follow-up was counseled as to return appointment activity level and side effects to be aware of. Medication Injected: Med Injected: Procedure is lumbar epidural steroid injection under local anesthetic using sterile prep and drape at the L4-5 level using C-arm fluoroscopic guidance in both AP and lateral views medications injected is 120 mg Depo-Medrol + 10 mL preservative-free normal saline and 2 mL contrast- condition at discharge is stable patient tolerated procedure well had no complications. Condition at Discharge: Condition at Discharge: Patient's condition at discharge is stable, patient tolerated procedure well had no complications. NOEL DYER MD Jan 07, 2020 11:30
== END | disposition home or self-care (01) ==
LOC: PNCL 10:50
PROVIDERS: ATTEND Anesthesiology
DX: M51.16 Intervertebral disc disorders with radiculopathy, lumbar region (principal); M47.816 Spondylosis without myelopathy or radiculopathy, lumbar region; I11.0 Hypertensive heart disease with heart failure; I50.9 Heart failure, unspecified; J44.9 Chronic obstructive pulmonary disease, unspecified; E11.9 Type 2 diabetes mellitus without complications; Z88.5 Allergy status to narcotic agent; Z88.8 Allergy status to other drugs, medicaments and biological substances; Z79.899 Other long term (current) drug therapy
CPT/HCPCS: 62323; J1030; J1040; Q9965

== ENCOUNTER → 2020-01-16 | Outpatient (CLI) | payer MEDICARE ==
[2016-01-18 09:57] VITALS: BP 118/67
[~2020-01-16] MED LIST changes: -IOHEXOL 180 MG/ML 10 ML VIAL. ONE; -methylPREDNISolone ACETATE 40 MG/ML VIAL. ONE; -methylPREDNISolone ACETATE 80 MG/ML VIAL. ONE
--- NOTE | 2020-01-16 16:23 | RAD ---
Chest radiograph 01/16/2020 12:00 AM INDICATION: COPD COMPARISON: 05/31/2016 TECHNIQUE: Frontal and lateral views of the chest are provided. FINDINGS: The cardiomediastinal silhouette is within normal limits. Median sternotomy changes are present. There are no pleural effusions. There is no pulmonary vascular congestion. There is no pneumothorax. The lungs are clear. No significant osseous abnormality is identified. IMPRESSION: No acute cardiopulmonary process. Electronically signed by: Meryl Fong MD (01/16/2020 4:21 PM) [facility]
== END ==
LOC: RAD 15:52
PROVIDERS: ATTEND Internal Medicine Pulmonary Disease
DX: J44.9 Chronic obstructive pulmonary disease, unspecified (principal); Z95.1 Presence of aortocoronary bypass graft
CPT/HCPCS: 71046

== ENCOUNTER → 2020-01-30 | Outpatient (CLI) | payer MEDICARE ==
[2016-01-18 09:57] VITALS: BP 118/67
[~2020-01-30] MED LIST changes: +IOHEXOL 180 MG/ML 10 ML VIAL. ONE; +methylPREDNISolone ACETATE 40 MG/ML VIAL. ONE; +methylPREDNISolone ACETATE 80 MG/ML VIAL. ONE
--- NOTE | 2020-01-30 10:52 | PDOC ---
Progress Note - Pain Clinic Date of Service: DOS: DATE: 01/30/20 TIME: 10:49 Diagnosis: Dx: Lumbar radiculopathy with lumbar degenerative disease and lumbar spondylosis History or Present Illness: HPI: 79-year-old male returns follow-up status post lumbar epidural steroid injections x2. Patient reports about 100% improvement for the first 2 weeks and the pain returning gradually in the low back and right lower extremity greater than left in the posterior gluteus posterior lateral thigh lateral anterior thigh medial thigh but only intermittently patient reports is mostly in the back patient rates his pain is a 6 on scale 10 is worse over the past week 5 on average for this least is a 4 today patient reports is aching some radiating but mostly well controlled. Patient reports initially doing much better with distance walking doing household activities traveling with greater ease and comfort now the pain is returning still is not waking him from sleep at night. Patient reports no new motor or sensory deficits no new bowel or bladder incontinence or other complaints. Physical Exam: VS: There is 131/74 pulse 98 respirations 18 temperature 98.2 F height is 5 feet 9 inches weight is 277 pounds PE: PHYSICAL EXAMINATION: GENERAL: The patient is awake, alert, oriented, appropriate, very pleasant demeanor HEENT: Shows normocephalic, atraumatic. Extraocular movements are intact and symmetrical. Oral cavity: Mucous membranes moist and pink. NECK: Shows anterior throat supple without palpable lymphadenopathy noted. Swallow reflex symmetrical. CHEST: Shows normal on inspection. Breath sounds are clear bilaterally, no rales rhonchi wheezes. HEART: Shows S1, S2 clear. No murmurs auscultated. ABDOMEN: Soft, nontender, nondistended, obese. No palpable organomegaly is noted. No rebound or guarding demonstrated. BACK: Shows spine grossly in the midline. Normal-appearing cervical lordotic curvature. There is slightly increased thoracic kyphosis, some minor flattening of the lumbar lordotic curvature. Lumbar paraspinous muscles show symmetrical on inspection, on palpation shows some moderate tenderness diffusely throughout the upper, middle and lower distribution of the paraspinous muscles bilaterally, without specific trigger points, without radiation of pain. The patient has good rotational motion of the lumbar spine, both laterally as well as extension and flexion without significant difficulty. No tenderness over the spinous processes, sacrum or sacroiliac regions. EXTREMITIES: Lower extremities show deep tendon reflexes 1+ in the patellar and tendo calcaneus tendons. Motor exam is 4 on a scale of 5 with right dorsiflexion, extension, quadriceps and hamstring flexion and 4/5 on the left. Peripheral pulses are 1+ posterior tibial. No peripheral edema is noted bilaterally. Lower extremities are warm and dry to touch, equal in color and appearance. SKIN: Shows warm and dry, good turgor. No edema. No sores, rashes or bruising throughout. Procedure: Procedure: Options were discussed with the patient. Patient's old chart was reviewed his current medication regimen updated current review of systems updated today as well. We will proceed with a third in a series lumbar epidural steroid ejection today with fluoroscopic guidance. Risks were discussed including but not limited to: Bleeding, infection, possibility of epidural hematoma and subsequent neurological compromise, dural puncture, headaches, spinal cord and/or nerve damage, side effects of steroid medication, and poor results regarding pain control. Patient understands wished to proceed. Patient return to clinic in approximate 2 weeks for follow-up was counseled as to return appointment activity level and side effects to be aware of. Medication Injected: Med Injected: Procedure is lumbar epidural steroid injection under local anesthetic using sterile prep and drape at the L4-5 level using C-arm fluoroscopic guidance in both AP and lateral views medications injected is 120 mg Depo-Medrol + 10 mL preservative-free normal saline and 2 mL contrast- condition at discharge is stable patient tolerated procedure well had no complications. Condition at Discharge: Condition at Discharge: Condition at discharge is stable patient tolerated the procedure well and had no complications. NOEL DYER MD Jan 30, 2020 10:52
== END ==
LOC: PNCL 10:18
PROVIDERS: ATTEND Anesthesiology
DX: M51.16 Intervertebral disc disorders with radiculopathy, lumbar region (principal); M47.816 Spondylosis without myelopathy or radiculopathy, lumbar region; I11.0 Hypertensive heart disease with heart failure; I50.9 Heart failure, unspecified; E11.9 Type 2 diabetes mellitus without complications; E78.00 Pure hypercholesterolemia, unspecified; Z79.82 Long term (current) use of aspirin; Z79.899 Other long term (current) drug therapy; Z88.5 Allergy status to narcotic agent; Z88.8 Allergy status to other drugs, medicaments and biological substances; Z79.84 Long term (current) use of oral hypoglycemic drugs
CPT/HCPCS: 62323; J1030; J1040; Q9965

== ENCOUNTER → 2020-06-16 | Outpatient (CLI) | payer MEDICARE ==
[2016-01-18 09:57] VITALS: BP 118/67
[~2020-06-16] MED LIST changes: +DULA0.75 SQ; +INSU100I13 SQ
--- NOTE | 2020-06-16 12:49 | PDOC ---
Progress Note - Pain Clinic Date of Service: DOS: DATE: 06/16/20 TIME: 12:46 Diagnosis: Dx: Lumbar radiculopathy with lumbar degenerative disease and lumbar spondylosis History or Present Illness: HPI: 79-year-old male returns in follow-up status post lumbar epidural steroid injections x3. Last seen February 04, 2020. Patient reports that he did very well about 80% improvement for several months after the injection the pain is returning over the past 3 to 4 weeks in the low back and the right lower extremity. Patient reports more in the right posterior gluteus posterior lateral thigh lateral anterior thigh medial thigh radiating worse with walking and standing better with sitting or laying down generally is not awakening from sleep at night patient reports initially was doing much better distance walking doing household activities travel with greater ease and comfort and the pain is now returning patient describes pain as aching and tight can be constant severe with activity. Patient reports no new motor or sensory deficits no new bowel or bladder incontinence rates the pain as an 8 on scale 10 is worse over the past week 7 on average 7 its least as a 7 today. Physical Exam: VS: Blood pressure is 137/69 pulse 90 respirations 18 temperature 98.1 F height is 5 feet 9 inches weight is 270 pounds PE: PHYSICAL EXAMINATION: GENERAL: The patient is awake, alert, oriented, appropriate, very pleasant demeanor HEENT: Shows normocephalic, atraumatic. Extraocular movements are intact and symmetrical. NECK: Shows anterior throat supple without palpable lymphadenopathy noted. Swallow reflex symmetrical. CHEST: Shows normal on inspection. Breath sounds are clear bilaterally, distant but no rales rhonchi or wheezes auscultated. HEART: Shows S1, S2 clear. No murmurs auscultated. ABDOMEN: Soft, nontender, nondistended, obese. No palpable organomegaly is no bob. No rebound or guarding demonstrated. BACK: Shows spine grossly in the midline. Normal-appearing cervical lordotic curvature. There is increased thoracic kyphosis, some minor flattening of the lumbar lordotic curvature. Lumbar paraspinous muscles show symmetrical on inspection, on palpation shows some moderate tenderness diffusely throughout the upper, middle and lower distribution of the paraspinous muscles without specific trigger points, without radiation of pain. The patient has good rotational motion of the lumbar spine, both laterally as well as extension and flexion without significant difficulty. EXTREMITIES: Lower extremities show deep tendon reflexes 1+ in the patellar and tendo calcaneus tendons. Motor exam is 4 on a scale of 5 with right dorsiflexion, extension, quadriceps and hamstring flexion and 4/5 on the left. Peripheral pulses are 1 to posterior tibial. No peripheral edema is noted bilaterally. Lower extremities are warm and dry to touch, equal in color and appearance. SKIN: Shows warm and dry, good turgor. No edema. No sores, rashes or bruising throughout. Procedure: Procedure: Options were discussed with patient. Patient chart reviews his current medication regimen updated current review of systems updated today as well. We will proceed with a first in the series lumbar epidural steroid traction today with fluoroscopic guidance. Risks were discussed including but not limited to: Bleeding, infection, possibility of epidural hematoma and subsequent neurological compromise, dural puncture, headaches, spinal cord and/or nerve damage, side effects of steroid medication, and poor results regarding pain control. Patient understands and wished to proceed. Patient return to the clinic in approximate 2 weeks for follow-up, was counseled as to return appointment activity level and side effects to be aware of. Medication Injected: Med Injected: Procedure is lumbar epidural steroid injection under local anesthetic using sterile prep and drape at the L4-5 level using C-arm fluoroscopic guidance in both AP and lateral views medications injected is 120 mg Depo-Medrol + 10 mL preservative-free normal saline and 2 mL contrast- condition at discharge is stable patient tolerated procedure well had no complications. Condition at Discharge: Condition at Discharge: Condition at discharge stable, patient alert procedure well and had no complications. NOEL DYER MD Jun 16, 2020 12:49
--- NOTE | 2020-06-16 12:49 | PDOC4 ---
PROCEDURE Procedure Patient was consented for lumbar epidural steroid injection. Risks were dis cussed including but not limited to: Bleeding, infection, possibility of epidural hematoma and subsequent neurological compromise, dural puncture, headaches, spinal cord and/or nerve damage, side effects of steroid medication, and poor results regarding pain control. Patient understands and wished to proceed. Procedure is lumbar epidural steroid injection under local anesthetic using sterile prep and drape at the L4-5 level using C-arm fluoroscopic guidance in both AP and lateral views medications injected is 120 mg Depo-Medrol + 10 mL preservative-free normal saline and 2 mL contrast- condition at discharge is stable patient tolerated procedure well had no complications. NOEL DYER MD Jun 16, 2020 12:49
== END | disposition home or self-care (01) ==
LOC: PNCL 11:41
PROVIDERS: ATTEND Anesthesiology
DX: M51.16 Intervertebral disc disorders with radiculopathy, lumbar region (principal); M47.26 Other spondylosis with radiculopathy, lumbar region; Z79.82 Long term (current) use of aspirin; Z79.4 Long term (current) use of insulin; Z79.899 Other long term (current) drug therapy; Z88.5 Allergy status to narcotic agent; Z88.8 Allergy status to other drugs, medicaments and biological substances
CPT/HCPCS: 62323; J1030; J1040; Q9965; 77002